=== PATIENT | male | born 1975 | race Caucasian/White ===

== ENCOUNTER → 2018-12-21 | Outpatient (CLI) | payer BC | LOC: FIMAGING 09:30 | PROVIDERS: ATTEND Orthopaedic Surgery | DX: M16.12 Unilateral primary osteoarthritis, left hip (principal) ==

== ENCOUNTER 2018-12-25 07:15 | Inpatient (IN) | payer BC, OTHER ==
[2018-12-31] MEDS ORDERED: POVIDONE-IODINE 20 ML in SODIUM CL IRRIG SOLUTION 500 ML IRR ONE (06:00)
[2018-12-31] MEDS ORDERED: ROPIVACAINE 0.2% 80 MG, EPINEPHrine 0.2 MG, KETOROLAC TROMETHAMINE 30 MG in SYRINGE 0 ML IU ONE (06:00)
[2018-12-31] MEDS ORDERED: TRANEXAMIC ACID 1,000 MG in NS 100 ML IV ONE (06:00)
[2018-12-31] MEDS ORDERED: BUPIVACAINE/EPI 0.5% 30 ML SDV ONE (10:47)
[2018-12-31] MEDS ORDERED: fentaNYL 100 MCG/2 ML INJ ONE (11:07)
[2018-12-31] MEDS ORDERED: PROPOFOL/EMULSION 500 MG/50 ML BOTTLE IV ONE ×3 (11:07→13:19)
[2018-12-31] MEDS ORDERED: ceFAZolin 2 GM/DEXTROSE 100 ML IV ONE (11:53)
[2018-12-31] MEDS ORDERED: DEXAMETHASONE 4 MG/ML VIAL IVP ONE (11:53)
[2018-12-31] MEDS ORDERED: FAMOTIDINE 20 MG TAB PO ONE (11:53)
[2018-12-31] MEDS ORDERED: ACETAMINOPHEN 325 MG TAB PO ONE (11:53)
[2018-12-31] MEDS ORDERED: LR 1,000 ML IV ONE (11:55)
[2018-12-31] MEDS ORDERED: MIDAZOLAM 2 MG/2 ML VIAL IVP ONE (12:41)
--- NOTE | 2018-12-31 12:41 | PDHPUP ---
History & Physical Update H&P update statement: This history and physical update is based on an assessment of the patient which was completed after admission or registration (within 24 hours), but prior to the surgery/procedure. H&P update: H&P reviewed & patient examined, no change in patient's condition since H&P completed
--- NOTE | 2018-12-31 12:41 | PDANEPAE ---
ANE History of Present Illness left hip DJD, here for LTHA ANE Past Medical History - Cardiovascular History Hx Hypertension: No Hx Arrhythmias: No Hx Chest Pain: No Hx Coronary Artery / Peripheral Vascular Disease: No Hx CHF / Valvular Disease: No Hx Palpitations: No - Pulmonary History Hx COPD: No Hx Asthma/Reactive Airway Disease: No Hx Recent Upper Respiratory Infection: No Hx Oxygen in Use at Home: No Hx Sleep Apnea: No Sleep Apnea Screening Result - Last Documented: Negative - Neurologic History Hx Cerebrovascular Accident: No Hx Seizures: No Hx Dementia: No - Endocrine History Hx Diabetes: No - Renal History Hx Renal Disorders: No - Liver History Hx Hepatic Disorders: No - Neurological & Psychiatric Hx Hx Neurological and Psychiatric Disorders: No - Cancer History Hx Cancer: No - Congenital Disorder History Hx Congenital Disorders: No - GI History Hx Gastrointestinal Disorders: Yes Gastrointestinal History Comment: ACID REFLUX - Other Health History Other Health History: NONE - Chronic Pain History Chronic Pain: No - Surgical History Prior Surgeries: DISTAL RADIAL FX 2017 ANE Review of Systems Review of Systems: - Exercise capacity METS (RN): 6 METS ANE Patient History - Allergies Allergies/Adverse Reactions: No Known Allergies Allergy (Unverified 12/24/18 10:54) - Home Medications Home Medications: NK [No Known Home Meds] 12/24/18 [Last Taken Unknown] - NPO status NPO Since - Liquids (Date): 12/31/18 NPO Since - Liquids (Time): 09:00 NPO Since - Solids (Date): 12/30/18 - Smoking Hx Smoking Status: Never smoked - Family Anes Hx Family Hx Anesthesia Complications: NONE ANE Labs/Vital Signs - Vital Signs Blood Pressure: 106/83 Heart Rate: 61 Respiratory Rate: 15 O2 Sat (%): 96 Height: 182.88 cm Weight: 97.522 kg ANE Physical Exam - Airway Neck exam: FROM Mallampati Score: Class 1 Mouth exam: normal dental/mouth exam - Pulmonary Pulmonary: no respiratory distress, no rales or rhonchi - Cardiovascular Cardiovascular: regular rate and rhythym, no murmur, rub, or gallop - ASA Status ASA Status: II ANE Anesthesia Plan Anesthesia Plan: GA with mask, spinal Total IV Anesthesia: Yes
[2018-12-31] MEDS ORDERED: ONDANSETRON 4 MG/2 ML VIAL ONE (13:18)
[2018-12-31] MEDS ORDERED: PHENYLEPHRINE HCL 100 MCG/ML SYR ONE (13:18)
[2018-12-31] MEDS ORDERED: LIDOCAINE 2% 100 MG/5 ML SYR ONE (13:18)
[2018-12-31] MEDS ORDERED: fentaNYL 250 MCG/5 ML INJ ONE (13:49)
[2018-12-31] MEDS ORDERED: DIAZEPAM 5 MG/ML 1 ML SYR IVP PRN (15:00)
[2018-12-31] MEDS ORDERED: NALOXONE HCL 0.4 MG/ML INJ IVP PRN (15:00)
[2018-12-31] MEDS ORDERED: LR 500 ML IV PRN (15:00)
[2018-12-31] MEDS ORDERED: ONDANSETRON 4 MG/2 ML VIAL IVP PRN ×2 (15:00→15:07)
[2018-12-31] MEDS ORDERED: HYDROmorphONE/DILAUDID 2 MG/ML INJ IVP PRN (15:00)
[2018-12-31] MEDS ORDERED: MEPERIDINE 25 MG/0.5 ML AMP IVP PRN (15:00)
[2018-12-31] MEDS ORDERED: PROMETHAZINE HCL 25 MG/ML INJ IVP PRN ×2 (15:00→15:07)
[2018-12-31] MEDS ORDERED: oxyCODONE IR 5 MG TAB PO PRN (15:00)
[2018-12-31] MEDS ORDERED: ACETAMINOPHEN 500 MG TAB PO PRN (15:00)
[2018-12-31] MEDS ORDERED: fentaNYL 100 MCG/2 ML INJ IVP PRN (15:00)
[2018-12-31] MEDS ORDERED: MEPERIDINE 25 MG/0.5 ML AMP ONE (15:07)
[2018-12-31] MEDS ORDERED: diphenhydrAMINE 25 MG CAP PO PRN (15:07)
[2018-12-31] MEDS ORDERED: MAGNESIUM HYDROXIDE 30 ML UDCUP PO PRN (15:07)
[2018-12-31] MEDS ORDERED: DIPHENOXYLATE/ATROPINE LOMOTIL 1 TAB PO PRN (15:07)
[2018-12-31] MEDS ORDERED: POLYETHYLENE GLYCOL 3350 17 GM PKT PO PRN (15:07)
[2018-12-31] MEDS ORDERED: PROMETHAZINE HCL 25 MG SUPPR PR PRN (15:07)
[2018-12-31] MEDS ORDERED: LACTULOSE 20 GM/30 ML UDCUP PO PRN (15:07)
[2018-12-31] MEDS ORDERED: ONDANSETRON DISINTEGRATING 4 MG TAB PO PRN (15:07)
[2018-12-31] MEDS ORDERED: BISACODYL 10 MG SUPP PR PRN (15:07)
[2018-12-31] MEDS ORDERED: TEMAZEPAM 15 MG CAP PO PRN (15:07)
[2018-12-31] MEDS ORDERED: METOCLOPRAMIDE 10 MG/2 ML VIAL IVP PRN (15:07)
--- NOTE | 2018-12-31 15:12 | POSTOPPROG ---
Post Op Note Date of Operation: 12/31/18 Surgeon: Harjit Hinds Latin Teacher: ALEX Cifuentes Anesthesiologist: MD Ming Anesthesia: IV Sedation, Spinal Pre-op Diagnosis: Left hip OA Post-op Diagnosis: same Procedure: Left ant SRIRAM with WILLIE Inf/Abcess present in the surg proc area at time of surgery?: No EBL: 100-500 (300) Drains: Hemovac
--- NOTE | 2018-12-31 15:13 | POSTANESTH ---
Post Anesthetic Evaluation Cardiovascular Status: Normal, Stable Respiratory Status: Normal, Stable Level of Consciousness/Mental Status: Can Participate in Eval, Mildly Sleepy, Arousable Pain Control: Adequate, Prn Tx Ordered Nausea/Vomiting Control: Adequate, Prn Tx Ordered Complications Possibly Related to Anesthesia: None Noted (moving feet for exam)
[2018-12-31] MEDS ORDERED: LR 1,000 ML IV SCH (15:30)
--- NOTE | 2018-12-31 15:41 | PDMN ---
Medical Necessity Medical necessity: [facility] [place] [id number]plasty: EVER INPT only OP: L SRIRAM with Kwame
--- NOTE | 2018-12-31 16:17 | GOP ---
[f rep st] OPERATIVE REPORT DATE OF OPERATION: 12/31/2018 SURGEON: Harjit Hinds MD FEDERAL MEDIATOR: Grant Cifuentes, CSFA, LSA. Youth Probation Officer was required for the procedure due to complexity of the case and patient's condition for positioning, prepping, draping, retraction, and closure. ANESTHESIA: Spinal and IV sedation. PREOPERATIVE DIAGNOSIS: Left hip osteoarthritis. POSTOPERATIVE DIAGNOSIS: Left hip osteoarthritis. PROCEDURE PERFORMED: Left hip anterior approach hip replacement, MAKOplasty robotic guidance, fluoro scopic supervision, greater than 1 hour. FINDINGS: SPECIMENS: Femoral head x1. ESTIMATED BLOOD LOSS: 300 cc. INDICATIONS: The patient has severe hip osteoarthritis that failed to improve with conservative tyrell ures significantly affecting activities of daily living including walking. The patient elected to pr oceed with anterior approach hip replacement using MAKOplasty robotic guidance after extensive discus mara of all possible approaches as well as the risks, benefits, pros, cons, expected recovery, and pr ognosis. The patient verbalized understanding of the risks, benefits of the procedure and signed inf ormed consent prior to the procedure. DESCRIPTION OF PROCEDURE: The patient was taken to the holding area. Operative consent and extremit y were signed. Patient was taken to the operative room after smooth induction of spinal anesthesia a nd sedation. Patient was placed in supine position on the operating room table with the arch table e xtension. The hip and contralateral iliac crest were prepped and draped in usual sterile fashion. O perative site was confirmed by signature. Operative time-out performed. Allergies reviewed. Antibi otics and TXA were administered. Three pins were placed in the contralateral iliac crest. Pelvic array was fixed. It was well visual ized by the robot. The desired incision for the anterior approach of the hip was infiltrated with 0. 25% Marcaine with epinephrine. This incision was made with a 10 blade, carried through the subcutane ous tissue to identify the TFL fascia this was incised in line with the incision, and the TFL was ret racted laterally. Lateral femoral circumflex vessels were coagulated with Aquamantys. The deep TFL fascia was incised and the vastus lateralis was clearly exposed, and precapsular fat was excised. A T-shaped capsulotomy was performed. The capsule was preserved for later closure. Femoral neck cut w as then performed based on pretemplated calculations and imaging. The femoral head was excised with a corkscrew. Acetabulum was exposed in standard fashion. The labrum, pulvinar and soft tissue were excised sharpl y. Pelvic checkpoint was placed in the AIIS and acetabular registration was performed using the robo t. Reaming was then performed using the robot to the desired size. Cup was impacted into place agai n with robotic guidance. Good fixation was achieved. The cup was irrigated and dried, and the liner was impacted into place achieving good locking within the cup. The femur was exposed in standard fashion. The femur was broached to the desired size. Trial neck a nd head were attached, and the hip was relocated. The position of all components was confirmed fluor oscopically. The foot was externally rotated 90 degrees, extended to the floor and stability was con firmed. The hip was then dislocated, and the femoral trial components were removed. The stem was im pacted into place. The trunnion was cleaned and dried, and the head was impacted down onto the trunn ion. The wound was copiously irrigated including the cup with pulse lavage, and the hip was once aga in relocated. Component placement was confirmed with fluoroscopy. All checkpoints were removed. The pelvic array was also removed. The wound was copiously irrigated with sterile solution. Dilute Betadine solution was then irrigated into the wound and allowed to soa k for 3 minutes before being irrigated out. Joint cocktail was injected in the soft tissue. Capsule and the indirect head of the rectus femoris were repaired with #1 Vicryl sutures. The drain was bette sondra exiting distally and laterally from deep to TFL. The wound was then closed in layers in 0 Quill in the TFL fascia and deep subcutaneous fat, 3-0 Versalok in the dermis. The wound was dressed with sterile dressings. The patient safely awakened and taken to the recovery room in stable condition. All critical portions of procedure were performed by myself, Dr. Hinds. This operative note was creat ed by myself, and I was immediately available for emergency cross-coverage at all times. DRAINS: Hemovac x1. COMPLICATIONS: None. IMPLANTS: 1. Ora Trident II Tritanium cluster hole acetabular shell size 54 with a 0-degree, 36 mm polyeth ylene liner. 2. [place] Accolade II size 7 stem, 132 degree offset, 36 mm -2.5 mm head. /[id number]/MODL
[2018-12-31] MEDS: oxyCODONE IR 5 MG TAB PO PRN (18:25)
[2018-12-31] MEDS: SENNOSIDES/DOCUSATE SODIUM TAB PO SCH (21:25)
[2018-12-31] MEDS: FAMOTIDINE 20 MG TAB PO SCH (21:25)
[2018-12-31] MEDS: ASPIRIN 81 MG CHEWABLE TAB PO SCH (21:25)
[2018-12-31] MEDS: ACETAMINOPHEN 325 MG TAB PO SCH (21:25)
[2018-12-31] MEDS: ceFAZolin 2 GM/DEXTROSE 100 ML IV SCH (21:25)
[2018-12-31] MEDS: CYCLOBENZAPRINE 10 MG TAB PO PRN (21:45)
[2019-01-01] MEDS: ACETAMINOPHEN 325 MG TAB PO SCH ×2 (03:58→08:18)
[2019-01-01] MEDS: ceFAZolin 2 GM/DEXTROSE 100 ML IV SCH (03:58)
[2019-01-01] MEDS: oxyCODONE IR 5 MG TAB PO PRN ×2 (07:06→08:29)
[2019-01-01 07:38] VITALS: BP 121/71
--- NOTE | 2019-01-01 07:44 | SOAPPROG ---
SOAP Progress Note Assessment/Plan: Assessment: Postop day 1 status post left anterior total hip arthroplasty Plan: Weight-bearing as tolerated, PT/OT DVT prophylaxis: SCDs, Arnold Hose, aspirin 81 mg twice daily x3 weeks Analgesics: Oxycodone, Celebrex Incentive spirometry 10 times per hour Disposition: Home after to physical therapy this morning 01/01/19 07:40 Subjective: No acute events. Pain well controlled. Denies fevers chills nausea vomiting chest pain shortness of breath. Objective: Vital Signs Temp Pulse Resp BP Pulse Ox 36.8 C 72 18 121/71 H 96 01/01/19 07:37 01/01/19 07:37 01/01/19 07:37 01/01/19 07:37 01/01/19 07:37 Laboratory Results 01/01/19 04:32 12/31/18 01/01/19 01/02/19 05:59 05:59 05:59 Intake Total 3565 500 Output Total 1940 Balance 1625 500 Awake alert and oriented x3 Easy nonlabored breathing Left thigh: Dressing clean dry intact no erythema drainage or signs of infection Drain discontinued Thigh and calf compartments soft compressible Sensation intact light touch L4-S1 Motor intact EHL FHL tibialis anterior gastrocsoleus Palpable DP PT pulses - Pending Discharge Pending Discharge Within 24 Hours: Yes Pending Discharge Date: 01/01/19 Pending Discharge Time: 11:00 ICD10 Worksheet Patient Problems: Problems Problem Status Onset Osteoarthritis of left hip Acute
[2019-01-01] MEDS: FAMOTIDINE 20 MG TAB PO SCH (08:18)
[2019-01-01] MEDS: SENNOSIDES/DOCUSATE SODIUM TAB PO SCH (08:18)
[2019-01-01] MEDS: ASPIRIN 81 MG CHEWABLE TAB PO SCH (08:18)
[2019-01-01] MEDS: CYCLOBENZAPRINE 10 MG TAB PO PRN (11:15)
--- NOTE | 2019-01-01 11:43 | ASMTLACE ---
C[facility] Length of stay for Answers: 2 days current admission Acuity / Level of Answers: Yes Care: Did the patient have an inpatient admission? # of Emergency department Answers: 0 visits in the last 6 months Score: 5 Date Signed: 01/01/2019 11:42 AM Electronically Signed By:REX Becerra
--- NOTE | 2019-01-01 11:44 | ASMTCMCOM ---
CM Note CM Note Notes: Pt had planned hip surgery, resides alone. PT rec outpatient. No CM d/c needs identified. Date Signed: 01/01/2019 11:44 AM Electronically Signed By:REX Becerra
--- NOTE | 2019-01-02 01:56 | GDS ---
[f rep st] DISCHARGE SUMMARY ADMITTING DIAGNOSIS: Left hip osteoarthritis. DISCHARGE DIAGNOSIS: Left hip osteoarthritis. PROCEDURE PERFORMED: Left hip anterior approach total hip arthroplasty with MAKOplasty robotic vanessa norman. HOSPITAL COURSE: Patient was admitted on the above date and underwent the above procedure without co mplication. He tolerated the procedure well. He was given DVT and antibiotic prophylaxis postoperat ively. He was observed for pain control and physical therapy which he tolerated well. He was then c leared for discharge on the morning of postop day 1. DISCHARGE DISPOSITION: Home. CONDITION UPON DISCHARGE: Stable. POSTOP INSTRUCTIONS: 1. Weightbearing as tolerated. 2. Aspirin 81 mg b.i.d. times 3 weeks. 3. Follow up in 2 weeks. /[id number]/MODL
== END 2019-01-01 12:56 | disposition home or self-care (01) | DRG 470 ==
LOC: OBSVTOIN 12-31 11:05 → F3N 12-31 11:05
PROVIDERS: ADMIT Orthopaedic Surgery; ATTEND Orthopaedic Surgery
PROC: 0SRB04A Replacement of Left Hip Joint with Ceramic on Polyethylene Synthetic Substitute, Uncemented, Open Approach (ICD-10-PCS; principal; 2018-12-31 12:45)
PROC: 8E0YXBF Computer Assisted Procedure of Lower Extremity, With Fluoroscopy (ICD-10-PCS; principal; 2018-12-31 12:45)
PROC: 8E0Y0CZ Robotic Assisted Procedure of Lower Extremity, Open Approach (ICD-10-PCS; principal; 2018-12-31 12:45)
DX: M16.12 Unilateral primary osteoarthritis, left hip (principal); K21.9 Gastro-esophageal reflux disease without esophagitis
CPT/HCPCS: 97161-GP; 97165-GO; J0171; J0690; J1100; J1885; J2001; J2175; J2250; J2370; J2405; J2704; J2795; J3010